=== PATIENT | female | born 1965 | race Caucasian/White ===

== ENCOUNTER 2017-01-20 07:24 | Outpatient (CLI) | payer MEDICAID ==
--- NOTE | ~2017-01-20 | HEMODYNAMI ---
PATIENT:TOY DICKERSON MEDICAL RECORD: [id number] : 69 LOCATION:[facility] ADMISSION DATE: 01/20/17 Generatedon:01/20/20179:44 Patient name: TOY DICKERSON Patient #: [id number] SSN: DO B: 1965 Date of study: 01/20/2017 Page: Of Hemodynamic Procedure Report Patient Data Patient Demographics Procedure consent was obtained First Name: TOY Gender: Female Last Name: JAYLA : 1965 Middle Initial: G Age: 51 year(s) Patient #: [id number] Race: Unknown Additional ID: [id number] Contact details [address]: [address] [place] [address] State: [place] City: [place] Zip code: [address] Past Medical History Allergies Allergen Reaction Date Comments Reported Other allergy 01/20/2017 Morphine, Prednisone Admission Admission Data Admission Date: 01/20/2017 Admission Time: 7:24 Lab Results Lab Result Date: 01/20/2017 Lab Result Time: 0:00 Biochemistry Name Units Result Min Max BUN mg/dl 10 --(-*--)-- 7 18 Creatinine mg/dl 0.7 --(*---)-- 0.6 1.3 CBC Name Units Result Min Max Hemoglobin g/dl 12.7 -*(----)-- 13.5 17.5 Procedure Procedure Types Cath Procedure Diagnostic Procedure [facility] w/Coronaries Miscellaneous Procedures Moderate Sedation up to 15 minutes Procedure Description Procedure Date Procedure Date: 01/20/2017 Procedure Start Time: 9:30 Procedure End Time: 9:42 Procedure Staff Name Function Barak Morejon MD Performing Physician Becky Rayo RN Nurse Aure Jane RT Scrub Denton Elizabeth RT Monitor Procedure Data Cath Procedure Fluoroscopy Diagnostic fluoroscopy Total fluoroscopy Time: 2.7 time: 2.7 min min Diagnostic fluoroscopy Total fluoroscopy dose: 975 dose: 975 mGy mGy Contrast Material Contrast Material Type Amount (ml) Isovue 300 69 Entry Location Entry Primary Successful Side Size Upsize Upsize Entry Closure Jarquin ccessful Closure Location (Fr) 1 (Fr) 2 (Fr) Remarks Device Remarks Radial Right 6 Fr Mechanical artery Short Compression Estimated blood loss: 10 ml Diagnostic catheters Device Type Used For End Catheter Placement Diagnostic Terumo 5Fr Procedure [facility] 110cm catheter Diagnostic Infinity 5Fr Procedure AR 2 MOD catheter Procedure Complications No complications Procedure Medications Medication Administration Route Dosage Oxygen NC 2 l/min Lidocaine 2% added to field 20 Heparin Flush Bag added to field 2 bags (1000units/500ml NS) 0.9% NaCl I.V. 100 ml/hr Versed I.V. 2 mg Fentanyl I.V. 100 mcg Versed I.V. 1 mg Fentanyl I.V. 50 mcg Radial Cocktail I.A. 1 syringe (Verapomil 2mg/Nitro 400mcg/Heparin 1500units) Hemodynamics Rest HGB: 12.7 (g/dl) Heart Rate: 76 (bpm) Snapshots Pre Cath Intra NCS Post Cath Vital Signs Time Heart Resp SPO2 etCO2 NIBP (mmHg) Rhythm Pain Sedation Rate (ipm) (%) (mmHg) Status Level (bpm) 9:12:52 70 27 100 0 131/81(104) NSR 0 (11) 10(A) , No pain 9:17:32 73 24 99 32.6 142/90(113) NSR 0 (11) 10(A) , No pain 9:22:27 75 14 96 31.1 100/66(83) NSR 0 (11) 10(A) , No pain 9:27:16 72 15 96 15.9 103/59(77) NSR 0 (11) 9(A) , No pain 9:32:05 61 15 96 25.1 110/58(93) NSR 0 (11) 9(A) , No pain 9:36:56 86 16 94 24.3 100/63(77) NSR 0 (11) 10(A) , No pain 9:41:42 76 18 96 28.1 119/66(95) NSR 0 (11) 10(A) , No pain Medications Time Medication Route Dose Verified Delivered Reason Notes E ffectiveness by by 9:22:40 Oxygen NC 2 l/min Barak Pena used for Jean-Pierre Rayo is architect 9:22:46 Lidocaine 2% added 20ml Barak Cancino for local to vial Jean-Pierre Morejon MD anesthetic field 9:22:52 Heparin Flush added 2 bags Barak Cancino used for Bag to Jean-Pierre Morejon MD procedure (1000units/500ml field NS) 9:23:01 0.9% NaCl I.V. 100 Barakclinton Palie Per ml/hr Jean-Pierre Rayo RN physician 9:23:08 Versed I.V. 2 mg Braak Palie for sedation Jean-Pierre Rayo RN 9:23:14 Fentanyl I.V. 100 mcg Barak Palie for sedation Jean-Pierre Rayo RN 9:28:15 Versed I.V. 1 mg Barak Palie for sedation Jean-Pierre Rayo RN 9:28:19 Fentanyl I.V. 50 mcg Barak Palie for sedation Jean-Pierre Rayo RN 9:31:32 Radial Cocktail I.A. 1 Barak Cancino for (Verapomil syringe Jean-Pierre Morejon MD vasodilation 2mg/Nitro 400mcg/Heparin 1500units) Procedure Log Time Note 8:45:07 Denton HAWK(R) sent for patient. Start room use. 9:00:11 Time tracking: Regular hours 9:00:15 Plan of Care:Hemodynamics will remain stable., Cardiac rhythm will remain stable., Comfort level will be maintained., Respiratory function will remain adequate., Patient/ family verbilizes understanding of procedure., Procedure tolerated without complication., Recovers from procedure without complications.. 9:05:10 Patient received from Pre/Post Procedure Room to [facility] 1 Alert and oriented. Tansferred to table in Supine position. 9:05:11 Warm blankets applied, and osvaldo hugger turned on for patient comfort. 9:05:12 Correct patient and procedure confirmed by team. 9:05:14 Signed procedure consent form obtained from patient. 9:05:14 ECG and BP/O2 sat monitors applied to patient. 9:05:31 H&P Date Dictated: 12/30/2016 Within 30 days and on chart., H&P Addendum completed by physician on day of procedure. (MUST COMPLETE FOR ALL OUTPATIENTS). 9:05:54 Patient allergic to Other allergyMorphine, Prednisone 9:05:56 Is the patient allergic to Iodine/contrast media? No. 9:06:01 Previous problem with sedation/anesthesia? No ? 9:06:02 Snore? Yes 9:06:03 Sleep apnea? Yes 9:06:04 Deviated septum? No 9:06:05 Opens mouth fully? Yes 9:06:05 Sticks out tongue? Yes 9:06:13 Airway obstruction? No ? 9:06:15 Dentures? No ? 9:06:18 Patient diabetic? No. 9:11:56 Vital chart was started 9:18:22 Baseline sample Acquired. 9:18:27 Rhythm: sinus rhythm 9:18:31 Full Disclosure recording started 9:18:33 Pre-procedure instructions explained to patient. 9:18:38 Pre-op teaching completed and patient verbalized understanding. 9:18:41 Family in waiting room. 9:18:44 Patient NPO since Midnight. 9:19:18 Patient not . Patient has had hysterectomy. 9:19:29 Pre procedure: right dorsailis pedis pulse 1+ Palpable, but thready & weak; easily obliterated 9:19:33 Modified Isaiah's test Ulnar < 7 seconds 9:19:39 Patient pain scale 0/10 ?. 9:19:49 IV patent on arrival in right forearm with 0.9% NaCl at O. 9:20:48 Lab Result : BUN 10 mg/dl 9:20:48 Lab Result : Hemoglobin 12.7 g/dl 9:20:48 Lab Result : Creatinine 0.7 mg/dl 9:20:54 Lab results completed and on chart. 9:20:58 Right Radial & Right Groin area was prepped with chlora-prep and draped in sterile fashion 9:21:00 Alarms reviewed by R. N. 9:21:01 Sharps counted by scrub and verified by R.N. 9:21:08 --------ALL STOP TIME OUT------ 9:21:15 Final Timeout: patient, procedure, and site verified with staff and physician. All members of the team are in agreement. 9:21:17 Right Radial & Right Groin site verified by team. 9:21:20 Physical assessment completed. ASA score P 2 - A patient with mild systemic disease as per Barak Morejon MD. 9:21:23 Sedation plan: IV Moderate Sedation Versed, Fentanyl 9:22:40 Oxygen 2 l/min NC was administered by Buffie Rayo RN; used for procedure; 9:22:46 Lidocaine 2% 20ml vial added to field was administered by Barak Morejon MD; for local anesthetic; 9:22:52 Heparin Flush Bag (1000units/500ml NS) 2 bags added to field was administered by Barak Morejon MD; used for procedure; 9:23:01 0.9% NaCl 100 ml/hr I.V. was administered by Becky Rayo RN; Per physician; 9:23:08 Versed 2 mg I.V. was administered by Becky Rayo RN; for sedation; 9:23:14 Fentanyl 100 mcg I.V. was administered by Becky Rayo RN; for sedation; 9:28:15 Versed 1 mg I.V. was administered by Becky Rayo RN; for sedation; 9:28:19 Fentanyl 50 mcg I.V. was administered by Becky Rayo RN; for sedation; 9:29:38 Use device set Radial Dx 9:29:41 Tegaderm 4 x 4 opened to sterile field. 9:29:51 Acist Syringe opened to sterile field. 9:29:52 Medline Cath Pack opened to sterile field. 9:29:54 Acist Hand Control opened to sterile field. 9:29:55 Acist Manifold opened to sterile field. 9:29:57 Bag Decanter opened to sterile field. 9:29:58 Terumo 6Fr Slender Glidesheath opened to sterile field. 9:29:59 St Mohsen 260cm J .035 wire opened to sterile field. 9:29:59 MBrace Wrist Support opened to sterile field. 9:30:05 Procedure started. 9:30:21 Local anesthetic to right radial artery with Lidocaine 2% by Barak Morejon MD.INITIAL ACCESS ONLY 9:30:40 A 6 Fr Short sheath was inserted into the Right Radial artery 9:31:13 A Diagnostic Terumo 5Fr [facility] 110cm catheter was advanced over the wire and used for Procedure. 9:31:32 Radial Cocktail (Verapomil 2mg/Nitro 400mcg/Heparin 1500units) 1 syringe I.A. was administered by Barak Morejon MD; for vasodilation; 9:32:12 Zero performed for pressure channel P1 9:32:25 LV gram done using ALMEIDA 9:32:34 EF : 60 % 9:33:07 LCA angiography performed. 9:35:23 Catheter removed. 9:35:33 A Diagnostic Infinity 5Fr AR 2 MOD catheter was advanced over the wire and used for Procedure. 9:36:45 RCA angiography performed. 9:36:48 Catheter removed. 9:36:58 Terumo TR Band Standard opened to sterile field. 9:37:11 Sheath removed intact; hemostasis achieved with Mechanical Compression to the Right Radial artery. 9:37:14 Procedure ended.(Physican Out) 9:37:27 Fluoroscopy time 02.70 minutes. 9:37:36 Fluoroscopy dose: 975 mGy 9:37:36 Flurop Dose total: 975 9:38:01 Contrast amount:Isovue 300 69ml. 9:38:03 Sharps counted by scrub and verified by R.N. 9:38:09 TR band inflated with 10cc of air. 9:38:12 Insertion/operative site no bleeding no hematoma. 9:38:41 Post Procedure Pulses reassessed and unchanged 9:38:48 Post-procedure physical assessment completed. ASA score P 2 - A patient with mild systemic disease as per Barak Morejon MD. 9:38:53 Post procedure rhythm: unchanged. 9:38:56 Estimated blood loss: 10 ml 9:39:00 Post procedure instruction explained to patient.Patient verbalizes understanding. 9:39:00 Patient needs reinforcement of post procedure teaching. 9:39:41 Procedure and supply charges have been captured, reviewed, submitted and are correct. 9:39:44 Procedure Complication : No complications 9:42:23 Vital chart was stopped 9:42:29 See physician's report for complete and final results. 9:42:30 Report given to Pre/Post Procedure Room. 9:42:34 Patient transfered to Pre/Post Procedure Room with Stretcher. 9:42:40 Procedure ended. 9:42:40 Full Disclosure recording stopped 9:42:47 End room use (Document Last) Device Usage Item Name Manufacture Quantity Catalog Hospital Part Current Minimal Lot# / Number Charge Number Stock Stock Serial# Code Tegaderm 4 3M 1 [id number] 265259 925230 879420 5 x 4 Acist Acist 1 38641 818764 581215 578968 20 Travolver Inc Medline Cardinal 1 [id number] 812889 78760 604511 5 Cath Pack Design2Launch Acist Hand Acist 1 91915 999091 564940 882825 5 Control Medical Systems Inc Acist Acist 1 02507 403745 800133 988459 5 Manifold Medical Systems Inc Bag Microtek 1 2002S 519173 53459 454038 5 Decanter Medical Inc. Terumo 6Fr Terumo 1 [id number] 971014 776690 388281 [address] St Mohsen 1 258386 118044 883675 207643 30 260cm J .035 wire MBrace Advanced 1 140-0250-00 565801 73435 922882 5 Wrist Vascular Support Dynamics Diagnostic Terumo 1 83-5726 547823 012907 251264 5 Terumo 5Fr [facility] 110cm catheter Diagnostic Cardinal 1 [id number] 541049 998198 650205 20 BusyFlow Health 5Fr AR 2 MOD catheter Terumo TR Terumo 1 [id number] 228416 410410 377915 40 Band Standard Signature Audit [place] Stage Time Signature Unsigned Intra-Procedure 01/20/2017 Aure Jane 9:44:03 AM RT(R) Signatures Monitor : Denton Elizabeth RT Signature : Date : Time : [place] [place] [address]
[2017-01-20] MEDS ORDERED: PLAVIX75 MG PO (07:34)
[2017-01-20] MEDS ORDERED: LISINOPRIL10 MG PO (07:37)
[2017-01-20] MEDS ORDERED: ZANTAC150 MG PO (07:37)
[2017-01-20] MEDS ORDERED: CARDIZEM30 MG PO (07:38)
[2017-01-20] MEDS ORDERED: ESTRACE1 MG PO (07:38)
[2017-01-20] MEDS ORDERED: NEURONTIN 300300 MG PO (07:39)
[2017-01-20] MEDS ORDERED: PLAQUENIL200 MG PO (07:39)
[2017-01-20] MEDS ORDERED: VOLTAREN100 MG PO (07:39)
[2017-01-20] MEDS ORDERED: GLUCOPHAGE500 MG PO (07:39)
[2017-01-20] MEDS ORDERED: REQUIP1 MG PO (07:40)
[2017-01-20] MEDS ORDERED: HYDROCODONE-APA1 TAB PO (07:40)
[2017-01-20] MEDS ORDERED: CELEXA40 MG PO (07:41)
[2017-01-20] MEDS ORDERED: BACLOFEN10 MG PO (07:41)
[2017-01-20] MEDS ORDERED: MOBIC7.5 MG PO (07:41)
[2017-01-20 07:47] VITALS: BP 130/77; BMI 51.6
[2017-01-20 07:57] LABS: BASOPHILS 0.2 % (0-2); EOSINOPHILS 1.4 % (0-7); HEMOGLOBIN 12.7 g/dL (12-16); IMMATURE GRANULOCYTES 0.2 % (0-5); LYMPHOCYTES 42.6 % (15-50); MCH 32.1 pg (26.0-34.0); MCHC 32.6 g/dL (31.0-37.0); MCV 98.5 fL (80.0-100.0); MEAN PLATELET VOLUME 10.4 fL (7.4-10.4); MONOCYTES 12.8 % (2-11); NEUTROPHILS 42.8 % (40-80); PLATELET COUNT 220 10x3/uL (130-400); RBC 3.96 10x6/uL (4.00-5.40); RDW 12.8 % (11.5-14.5); WBC 4.9 10x3/uL (4.8-10.8)
[2017-01-20 08:12] LABS: CALC OSMOLALITY 274 mosm/kg (275-300); CALCIUM 8.7 mg/dL (8.5-10.1); CARBON DIOXIDE 23.9 mmol/L (21.0-32.0); CHLORIDE - SERUM 105 mmol/L (98-107); CREATININE - SERUM 0.7 mg/dL (0.6-1.3); GLUCOSE 104 mg/dL (74-106); POTASSIUM - SERUM 3.8 mmol/L (3.5-5.1); SODIUM 138 mmol/L (136-145); UREA NITROGEN 10 mg/dL (7-18); eGFR NON AFRICAN AMERICAN > 90 mL/min (90-120)
[2017-01-20 08:14] LABS: HCG SERUM NEGATIVE (NEGATIVE)
--- NOTE | 2017-01-20 10:10 | NUR ---
2L NC, NO RESP DISTRESS NOTED. RIGHT WRIST TR BAND CDI, NO BLEEDING OR HEMATOMA NOTED. NO C/O NAUSEA OR PAIN. VSS. FAMILY AT BEDSIDE, CALL LIGHT WITHIN REACH.
--- NOTE | 2017-01-20 10:40 | NUR ---
SANDWICH TRAY AND DRINK GIVEN, NO C/O NAUSEA. RIGHT WRIST TR BAND CDI, NO BLEEDING OR HEMATOMA NOTED. NO C/O PAIN. VSS. WILL CONTINUE TO MONITOR.
--- NOTE | 2017-01-20 11:01 | NUR ---
3CC OF AIR REMOVED FROM TR BAND, NO BLEEDING NOTED. VSS.
--- NOTE | 2017-01-20 11:12 | NUR ---
3CC OF AIR REMOVED FROM TR BAND, NO BLEEDING OR HEMATOMA NOTED. VSS.
--- NOTE | 2017-01-20 11:30 | NUR ---
3CC OF AIR REMOVED FROM TR BAND, NO BLEEDING NOTED.
--- NOTE | 2017-01-20 11:45 | NUR ---
LEFT HAND PIV D/C'D WITH CATHETER INTACT, BAND AID TO SITE. UP TO BEDSIDE TO GET DRESSED.
--- NOTE | 2017-01-20 11:52 | NUR ---
UP TO RESTROOM TO VOID.
--- NOTE | 2017-01-20 11:57 | NUR ---
DISCHARGE INSTRUCTIONS GIVEN, VERBALIZED UNDERSTANDING. REMAINING AIR REMOVED FROM TR BAND AND DRESSING PLACED TO SITE.
--- NOTE | 2017-01-20 12:05 | NUR ---
TAKEN OUT VIA WHEELCHAIR BY CATH EASTER BUNNY. LEFT FACILITY WITH FAMILY MEMBER AND ALL PERSONAL BELONGINGS.
--- NOTE | 2017-01-31 16:56 | OP ---
PATIENT NAME: TOY DICKERSON MEDICAL RECORD: [id number] :69 LOCATION:D[facility]CAT ADMISSION DATE: SURGEON: MARIELA GUTIERREZ MD DATE OF OPERATION: 01/20/2017 PROCEDURES: 1. Left heart catheterization. 2. Selective coronary angiography. 3. Left ventriculogram. INDICATION: Chest pain compatible with angina. PROCEDURE IN DETAIL: After informed consent was obtained and after detailed explanation of risks, benefits as well as alternative therapies, the patient elected to proceed with angiogram and heart catheterization. The right radial area was prepped and draped in normal sterile fashion. The right radial artery was cannulated via modified Seldinger technique with placement of 6-Malaysian sheath. All catheters exchanged through this sheath. FINDINGS: Left ventriculogram performed in standard 30-degree ALMEIDA view, reveals good cardiac wall motion throughout all segments. Overall ejection fraction estimated at 60%. SELECTIVE CORONARY ANGIOGRAPHY: Left main, left anterior descending, left circumflex, and right coronary artery are all smooth-walled vessels with no angiographic evidence of coronary artery disease. OVERALL IMPRESSION: 1. No angiographic evidence of coronary artery disease. 2. Normal left heart pressures. 3. Normal left ventricular systolic function. Chest pain is noncardiac in etiology. No further cardiac workup needs to be ascertained. TRANSINT:[id number] Voice Confirmation ID: [id number] DOCUMENT ID: [id number] MARIELA GUTIERREZ MD at 1656 CC: [id number] DICTATION DATE: 01/20/17 0939 DIRECTOR OF EVENT MANAGEMENT: 01/20/17 1135 [facility] CLI 01/20/[address] [address]
== END 2017-01-20 12:05 | disposition home or self-care (01) ==
LOC: D.CATH 07:24
PROVIDERS: Internal Medicine Interventional Cardiology
DX: I20.9 Angina pectoris, unspecified (principal); R07.9 Chest pain, unspecified; I10 Essential (primary) hypertension; Z01.812 Encounter for preprocedural laboratory examination

== ENCOUNTER → 2017-04-29 09:29 | Outpatient (CLI) | payer MEDICAID ==
[~2017-04-29 09:29] MED LIST: BACLOFEN10 MG PO; CARDIZEM30 MG PO; CELEXA40 MG PO; ESTRACE1 MG PO; GLUCOPHAGE500 MG PO; HYDROCODONE-APA1 TAB PO; LISINOPRIL10 MG PO; MOBIC7.5 MG PO; NEURONTIN 300300 MG PO; PLAQUENIL200 MG PO; PLAVIX75 MG PO; REQUIP1 MG PO; VOLTAREN100 MG PO; ZANTAC150 MG PO
== END | disposition home or self-care (01) ==
LOC: D.RAD 09:29
DX: R05 Cough (principal)

== ENCOUNTER 2018-01-18 10:17 | Emergency (ER) | payer MEDICARE ==
[2018-01-18 10:21] VITALS: Ht 165.1 cm
[2018-01-18] MEDS ORDERED: NORCO 7.5/325 T1 TA1 PO (11:10)
[2018-01-18 11:42] VITALS: BP 138/79
== END 2018-01-18 11:44 | disposition home or self-care (01) ==
LOC: D.ER 10:17
DX: S89.92XA Unspecified injury of left lower leg, initial encounter (principal); W18.30XA Fall on same level, unspecified, initial encounter; Y93.89 Activity, other specified; Y92.018 Other place in single-family (private) house as the place of occurrence of the external cause; I10 Essential (primary) hypertension

== ENCOUNTER → 2018-01-23 13:10 | Outpatient (CLI) | payer MEDICARE ==
[2018-01-18 10:21] VITALS: BMI 51.6
[~2018-01-23 13:10] MED LIST changes: +NORCO 7.5/325 T1 TA1 PO
== END | disposition home or self-care (01) ==
LOC: D.MRI 13:10
DX: M25.562 Pain in left knee (principal)

== ENCOUNTER → 2018-06-12 10:19 | Outpatient (CLI) | payer OTHER ==
[2018-01-18 10:21] VITALS: BMI 51.6
== END | disposition home or self-care (01) ==
LOC: D.RAD 10:19
PROVIDERS: ATTEND Family Medicine
DX: M25.552 Pain in left hip (principal)

== ENCOUNTER 2018-07-22 07:01 | Day surgery (SDC) | payer OTHER ==
[2018-07-20 10:19] LABS: BASOPHILS 0.2 % (0-2); HEMATOCRIT 39.1 % (36.0-48.0); HEMOGLOBIN 12.9 g/dL (12-16); IMMATURE GRANULOCYTES 0.2 % (0-5); LYMPHOCYTES 49.5 % (15-50); MCH 30.6 pg (26.0-34.0); MCV 92.9 fL (80.0-100.0); MEAN PLATELET VOLUME 9.7 fL (7.4-10.4); NEUTROPHILS 39.1 % (40-80); PLATELET COUNT 226 10x3/uL (130-400); RBC 4.21 10x6/uL (4.00-5.40); RDW 14.2 % (11.5-14.5)
[2018-07-20 10:37] LABS: ANION GAP 10.1 mmol/L (8-16); CALCIUM 9.3 mg/dL (8.5-10.1); CARBON DIOXIDE 31.1 mmol/L (21.0-32.0); POTASSIUM - SERUM 4.2 mmol/L (3.5-5.1)
[~2018-07-22] VITALS: Ht 165.1 cm; Wt 149.2 kg
[~2018-07-22 07:01] MED LIST changes: +KLONOPIN1 MG PO; +LISINOPRIL-HCT1 EAC8 PO; +ZANAFLEX4 MG PO
[2018-07-22 08:46] VITALS: BP 101/57; Ht 165.1 cm; Wt 149.2 kg
--- NOTE | 2018-07-22 13:49 | NUR ---
1300 PT VOIDED LARGE AMT URINE. IV REMOVED LEFT AC DRESSING APPLIED
== END 2018-07-22 14:00 | disposition home or self-care (01) ==
LOC: D.OPS 07:01 → D.PAN 08:00 → D.OPS 09:00
PROVIDERS: ATTEND Orthopaedic Surgery
DX: S83.281A Other tear of lateral meniscus, current injury, right knee, initial encounter (principal); M94.261 Chondromalacia, right knee; M65.861 Other synovitis and tenosynovitis, right lower leg; Z01.812 Encounter for preprocedural laboratory examination

== ENCOUNTER → 2018-09-25 10:29 | Outpatient (CLI) | payer OTHER ==
[2018-07-22 08:46] VITALS: BMI 54.8
== END | disposition home or self-care (01) ==
LOC: D.MRI 09-23 11:00
PROVIDERS: ATTEND Clinical Nurse Specialist Family Health
DX: M25.511 Pain in right shoulder (principal)

== ENCOUNTER → 2018-10-07 08:26 | Outpatient (CLI) | payer OTHER ==
[~2018-10-07] VITALS: Ht 165.1 cm; Wt 145.1 kg
[2018-10-07 09:50] VITALS: Ht 165.1 cm; Wt 145.1 kg
== END | disposition home or self-care (01) ==
LOC: D.FANS 09-29 13:00
PROVIDERS: ATTEND Surgery
DX: E66.01 Morbid (severe) obesity due to excess calories (principal)

== ENCOUNTER → 2018-10-14 14:28 | Outpatient (CLI) | payer OTHER ==
[2018-10-07 09:50] VITALS: BMI 53.2
== END | disposition home or self-care (01) ==
LOC: D.RT 14:28
PROVIDERS: ATTEND Internal Medicine Pulmonary Disease
DX: R06.00 Dyspnea, unspecified (principal)

== ENCOUNTER 2018-11-23 07:20 | Day surgery (SDC) | payer OTHER ==
[~2018-11-23] VITALS: Ht 165.1 cm; Wt 149.5 kg
[2018-11-23 07:57] LABS: CALC OSMOLALITY 283 mosm/kg (275-300); CALCIUM 9.3 mg/dL (8.5-10.1); CARBON DIOXIDE 27.9 mmol/L (21.0-32.0); CHLORIDE - SERUM 105 mmol/L (98-107); CREATININE - SERUM 0.8 mg/dL (0.6-1.3); GLUCOSE 105 mg/dL (74-106); POTASSIUM - SERUM 3.7 mmol/L (3.5-5.1); SODIUM 143 mmol/L (136-145); UREA NITROGEN 9 mg/dL (7-18); eGFR NON AFRICAN AMERICAN 80 mL/min (90-120)
[2018-11-23 08:05] LABS: BASOPHILS 0.4 % (0-2); EOSINOPHILS 1.6 % (0-7); HEMATOCRIT 38.6 % (36.0-48.0); HEMOGLOBIN 12.7 g/dL (12-16); IMMATURE GRANULOCYTES 0.2 % (0-5); LYMPHOCYTES 47.7 % (15-50); MCHC 32.9 g/dL (31.0-37.0); MCV 94.1 fL (80.0-100.0); MEAN PLATELET VOLUME 10.6 fL (7.4-10.4); MONOCYTES 12.5 % (2-11); NEUTROPHILS 37.6 % (40-80); PLATELET COUNT 244 10x3/uL (130-400); RDW 13.3 % (11.5-14.5); WBC 5.1 10x3/uL (4.8-10.8)
[2018-11-23] MEDS ORDERED: TERBINAFINE (09:16)
[2018-11-23] MEDS ORDERED: TOPAMAX50 MG (09:17)
[2018-11-23] MEDS ORDERED: TUMERIC CURCUMIN PO (09:18)
[2018-11-23] MEDS ORDERED: AMBEREN (09:19)
[2018-11-23] MEDS ORDERED: VITAMIN D5000 UNIT (09:20)
[2018-11-23 09:30] VITALS: BP 108/65; Ht 165.1 cm; Wt 149.5 kg
--- NOTE | 2018-11-23 13:02 | NUR ---
DC INSTRUCTIONS GIVEN TO PT/FAMILY. STATE UNDERSTANDING. DC'D IV CATH FULLY INTACT. PT LEFT UNIT VIA WC AT 1230
== END 2018-11-23 12:30 | disposition home or self-care (01) ==
LOC: D.OPS 07:20
PROVIDERS: ATTEND Surgery
DX: E66.01 Morbid (severe) obesity due to excess calories (principal); Z68.43 Body mass index [BMI] 50.0-59.9, adult; K21.9 Gastro-esophageal reflux disease without esophagitis

== ENCOUNTER → 2018-11-26 08:30 | Outpatient (CLI) | payer OTHER ==
[2018-11-23 09:30] VITALS: BMI 54.8
[~2018-11-26 08:30] MED LIST changes: +AMBEREN; +HYDROCODON-ACE1 EAC7 PO; +PROTONIX40 MG PO; +TERBINAFINE; +TOPAMAX50 MG; +TUMERIC CURCUMIN PO; +VITAMIN D5000 UNIT; +ZOFRAN ODT4 MG/UDTAB PO
== END | disposition home or self-care (01) ==
LOC: D.OPS 08:30 → D.RAD 10:30
PROVIDERS: ATTEND Surgery
DX: E66.01 Morbid (severe) obesity due to excess calories (principal)

== ENCOUNTER 2019-01-01 10:32 | Inpatient (IN) | payer OTHER ==
[~2019-01-01] VITALS: Ht 165.1 cm; Wt 140.9 kg
[~2019-01-01 10:32] MED LIST changes: -HYDROCODON-ACE1 EAC7 PO; -PROTONIX40 MG PO; -ZOFRAN ODT4 MG/UDTAB PO
[2019-01-01 12:50] LABS: HEMATOCRIT 41.8 % (36.0-48.0); HEMOGLOBIN 13.9 g/dL (12-16); MCH 31.2 pg (26.0-34.0); MCHC 33.3 g/dL (31.0-37.0); MCV 93.9 fL (80.0-100.0); MEAN PLATELET VOLUME 10.3 fL (7.4-10.4); RBC 4.45 10x6/uL (4.00-5.40); WBC 5.4 10x3/uL (4.8-10.8)
[2019-01-01 12:59] LABS: CALC OSMOLALITY 276 mosm/kg (275-300); CALCIUM 9.6 mg/dL (8.5-10.1); CARBON DIOXIDE 29.4 mmol/L (21.0-32.0); CHLORIDE - SERUM 100 mmol/L (98-107); CREATININE - SERUM 0.8 mg/dL (0.6-1.3); GLUCOSE 87 mg/dL (74-106); POTASSIUM - SERUM 3.6 mmol/L (3.5-5.1); SODIUM 140 mmol/L (136-145); UREA NITROGEN 9 mg/dL (7-18); eGFR NON AFRICAN AMERICAN 80 mL/min (90-120)
[2019-01-04] VITALS (17 sets, daily range): BP systolic 127–181; BP diastolic 67–103; Ht 165.1 cm; Wt 140.9 kg
[2019-01-04] MEDS ORDERED: PROTONIX40 MG PO (07:33)
--- NOTE | 2019-01-04 09:18 | NUR ---
PT STATED SHE HAD A FALL THIS AM AND WAS CONCERNED THAT SHE MAY HAVE BROKE TOES ON LEFT FOOT PT STATED SHE WAS UNABLE TO REMOVE RING ON LEFT RING FINGER AND HAD MADE EVERY ATTEMPT TO DO SO. PT MADE AWARE OF RISK DUE TO USE OF ELECTRIC CAUTERY. TAPE PLACE AROUND PT RING ON LEFT RING FINGER. ABDOMEN THOROUGHLY PREPPED WITH CHLORAPREP X3.
--- NOTE | 2019-01-04 15:56 | NUR ---
PT HOUSE WIRER LIGHT. PATIENT HAS HIVES AND REDNESS. SAID SHE BELIEVED SHE HAD DILAUDED BEFORE. DR WILKINS CALLED. SAID IF THEY WANTED A COLD ROLLING SUPERVISOR THE ONLY OPTIONS ARE DILAUDED AND MORPHINE. PT STATES ALLERGY TO MORPHINE. DR WILKINS GAVE MEDICATION OPTIONS. TM
--- NOTE | 2019-01-04 19:30 | NUR ---
PT IS RESTING IN BED WITH EYES CLOSED. OPENS EYES EASILY TO VERBAL STIMULI. ALERT AND ORIENTED X3. SHE IS VERY DROWSY. DENIES ANY NEEDS AT THIS TIME. O2 IS @ 4LPM PER NC. SAT IS 96%. VSS. PULSE IS 117. 6 LAP SITES TO ABD ARE CDI. SCANT AMOUNT OF OLD DRAINAGE NOTED TO 2 SITES ON RIGHT UPPER ABDOMEN. AND 2 SISTERS ARE VISITING AT BEDSIDE. SR'S ARE UP X 3 IN BED. CALL LIGHT AND BEDSIDE TABLE ARE WITHIN EASY REACH.
[2019-01-04 20:11] LABS: CKMB 1.6 U/L (0.0-3.6); CREATINE KINASE 203 UL (21-215)
[2019-01-04 20:12] LABS: TROPONIN-I < 0.017 ng/mL (0.000-0.060)
--- NOTE | 2019-01-04 22:00 | NUR ---
PT RESTING IN BED WITH EYES OPEN. SHE IS MUCH MORE AWAKE AT THIS TIME. DENIES NEEDS. STATED HE HAD JUST HELPED HER WALK TO THE BATHROOM WITHOUT DIFFICULTY. O2 @ 98%. LOWERED TO 3LPM AT THIS TIME.
--- NOTE | 2019-01-04 23:43 | NUR ---
RESTING IN BED WITH EYES CLOSED. NO DISTRESS NOTED. CPAP ON. SPOUSE RESTING IN RECLINER IN ROOM.
[2019-01-05 01:37] LABS: CKMB 1.3 U/L (0.0-3.6); CREATINE KINASE 222 UL (21-215); TROPONIN-I < 0.017 ng/mL (0.000-0.060)
--- NOTE | 2019-01-05 02:23 | NUR ---
PT IS RESTING QUIETLY IN BED WITH EYES CLOSED. RESPS ARE 19, EVEN AND UNLABORED. NO ACUTE DISTRESS NOTED.
--- NOTE | 2019-01-05 02:25 | NUR ---
I have reviewed this patient and I concur with the Shift Assessment completed by the Licensed Practical Nurse today this shift.
[2019-01-05 04:00] VITALS: BP 169/77
--- NOTE | 2019-01-05 06:15 | NUR ---
PT UP TO BATHROOM WITH ASSIST FROM . PT STATES SHE IS A LITTLE SORE THIS MORNING, BUT IS FEELING GREAT. O2 SAT IS 98 PERCENT ON ROOM AIR. NO NEEDS VOICED.
[2019-01-05 06:50] LABS: BASOPHILS 0.1 % (0-2); EOSINOPHILS 0.1 % (0-7); HEMATOCRIT 39.6 % (36.0-48.0); HEMOGLOBIN 12.6 g/dL (12-16); IMMATURE GRANULOCYTES 0.1 % (0-5); LYMPHOCYTES 22.7 % (15-50); MCHC 31.8 g/dL (31.0-37.0); MEAN PLATELET VOLUME 10.8 fL (7.4-10.4); MONOCYTES 15.3 % (2-11); NEUTROPHILS 61.7 % (40-80); PLATELET COUNT 227 10x3/uL (130-400); RBC 4.06 10x6/uL (4.00-5.40); RDW 13.9 % (11.5-14.5); WBC 8.5 10x3/uL (4.8-10.8)
[2019-01-05 06:53] LABS: MCV 97.5 fL (80.0-100.0)
[2019-01-05 07:14] LABS: ALBUMIN 3.4 g/dL (3.4-5.0); ALKALINE PHOSPHATASE 60 U/L (46-116); ALT (SGPT) 33 U/L (10-68); BILIRUBIN - TOTAL 0.59 mg/dL (0.2-1.3); CHLORIDE - SERUM 101 mmol/L (98-107); CREATINE KINASE 225 UL (21-215); GLUCOSE 110 mg/dL (74-106); PROTEIN - SERUM 6.7 g/dL (6.4-8.2); SODIUM 140 mmol/L (136-145); TROPONIN-I < 0.017 ng/mL (0.000-0.060); eGFR NON AFRICAN AMERICAN 70 mL/min (90-120)
[2019-01-05 07:15] LABS: CALC OSMOLALITY 276 mosm/kg (275-300); CREATININE - SERUM 0.9 mg/dL (0.6-1.3); UREA NITROGEN 5 mg/dL (7-18)
--- NOTE | 2019-01-05 07:15 | NUR ---
REC'D IN BED AWAKE AND ALERT. RESP EVEN AND UNLABORED WITH NO DISTRESS NOTED. CAN EXPRESS NEEDS ANDS AND WANTS. NO C/O NOTED OR VOICED. ASSESSMENT COMPLETED. NO C/O VOICED. C/L IN REACH AT BEDSIDE.
[2019-01-05 08:15] VITALS: BP 178/85
[2019-01-05] MEDS ORDERED: HYDROCODON-ACE1 EAC7 PO (09:53)
[2019-01-05] MEDS ORDERED: ZOFRAN ODT4 MG/UDTAB PO (09:53)
--- NOTE | 2019-01-05 10:31 | NUR ---
MEDICATED WITH TORDAL AT THIS TIME FOR C/O ABD PAIN. C/L IN REACH AT BEDSIDE.
--- NOTE | 2019-01-05 12:30 | NUR ---
DC HOME AT THIS TIME. VOICE UNDERSTANDING OF DC ORDERS. IV DC WITH TIP INTACT. STABLE CONDITION UPON DEPARTURE.
[2019-01-05 12:39] VITALS: BP 182/77
== END 2019-01-05 12:40 | disposition home or self-care (01) | DRG 621 ==
LOC: D.MS 01-04 07:05 → D.SDCHOLD 01-04 08:00 → D.MS 01-05 12:40
PROVIDERS: Anesthesiology; ADMIT Surgery; ATTEND Surgery
PROC: 0DB64Z3 Excision of Stomach, Percutaneous Endoscopic Approach, Vertical (ICD-10-PCS; principal; 2019-01-04 08:00)
DX: E66.01 Morbid (severe) obesity due to excess calories (principal); Z68.43 Body mass index [BMI] 50.0-59.9, adult; I10 Essential (primary) hypertension; G47.33 Obstructive sleep apnea (adult) (pediatric); M81.0 Age-related osteoporosis without current pathological fracture; K21.0 Gastro-esophageal reflux disease with esophagitis; M15.3 Secondary multiple arthritis

== ENCOUNTER 2019-01-04 05:48 | Emergency (ER) | payer OTHER ==
[~2019-01-04] VITALS: Ht 165.1 cm; Wt 142.3 kg
[2019-01-04 05:51] VITALS: Ht 165.1 cm; Wt 142.3 kg
[2019-01-04 06:36] LABS: BASOPHILS 0.1 % (0-2); EOSINOPHILS 0.4 % (0-7); HEMATOCRIT 40.8 % (36.0-48.0); HEMOGLOBIN 13.4 g/dL (12-16); IMMATURE GRANULOCYTES 0.1 % (0-5); LYMPHOCYTES 15.8 % (15-50); MCH 31.2 pg (26.0-34.0); MCHC 32.8 g/dL (31.0-37.0); MCV 95.1 fL (80.0-100.0); MEAN PLATELET VOLUME 10.8 fL (7.4-10.4); MONOCYTES 11.7 % (2-11); NEUTROPHILS 71.9 % (40-80); PLATELET COUNT 231 10x3/uL (130-400); RBC 4.29 10x6/uL (4.00-5.40); RDW 13.3 % (11.5-14.5); WBC 8.1 10x3/uL (4.8-10.8)
[2019-01-04 06:47] LABS: ALKALINE PHOSPHATASE 68 U/L (46-116); ALT (SGPT) 43 U/L (10-68); BILIRUBIN - TOTAL 0.57 mg/dL (0.2-1.3); CALC OSMOLALITY 285 mosm/kg (275-300); CALCIUM 9.3 mg/dL (8.5-10.1); CARBON DIOXIDE 31.5 mmol/L (21.0-32.0); CHLORIDE - SERUM 104 mmol/L (98-107); CREATININE - SERUM 1.5 mg/dL (0.6-1.3); GLUCOSE 104 mg/dL (74-106); POTASSIUM - SERUM 3.8 mmol/L (3.5-5.1); PROTEIN - SERUM 6.8 g/dL (6.4-8.2); SODIUM 144 mmol/L (136-145); UREA NITROGEN 9 mg/dL (7-18); eGFR NON AFRICAN AMERICAN 39 mL/min (90-120)
[2019-01-04 06:51] LABS: CREATINE KINASE 188 UL (21-215)
[2019-01-04 06:54] LABS: TROPONIN-I < 0.017 ng/mL (0.000-0.060)
[2019-01-04 06:57] VITALS: BP 96/50
[2019-01-04] MEDS ORDERED: PROTONIX40 MG PO (07:33)
[2019-01-05] MEDS ORDERED: HYDROCODON-ACE1 EAC7 PO (09:53)
[2019-01-05] MEDS ORDERED: ZOFRAN ODT4 MG/UDTAB PO (09:53)
== END 2019-01-04 06:58 | disposition home or self-care (01) ==
LOC: D.ER 05:48
PROVIDERS: Family Medicine
DX: R55 Syncope and collapse (principal); I10 Essential (primary) hypertension

== ENCOUNTER 2019-04-04 04:26 | Inpatient (IN) | payer OTHER ==
[2019-04-04] VITALS (51 sets, daily range): BP systolic 70–172; BP diastolic 29–89; Ht 165.1 cm; Wt 133.3 kg
[~2019-04-04] VITALS: Ht 165.1 cm; Wt 133.3 kg
--- NOTE | ~2019-04-04 | EC ---
PATIENT:TOY DICKERSON DATE OF SERVICE: 04/04/19 SEX: F MEDICAL RECORD: [id number] DATE OF : 69 LOCATION:[place] [address] AGE OF PATIENT: 53 ADMISSION DATE: 04/04/19 REFERRING PHYSICIAN: INTERPRETING PHYSICIAN: MARIELA MOREJON MD ECHOCARDIOGRAM REPORT ECHO CHARGES 4 ECHO COMPLETE Date: 04/04/19 CLINICAL DIAGNOSIS: SYNCOPE HX HTN ECHOCARDIOGRAPHIC MEASUREMENTS (adult normal given) AC root (d.<3.7cm) 3.3 cm LV Septum d (<1.2 cm> 1.6 cm Valve Excursion 1.5 cm LV Septum (systole) 1.9 cm Left Atria (s.<4.0cm> 3.6 cm LVPW d(<1.2cm) 1.6 cm RV (d.<2.3cm) 3.4 cm LVPW (sytole) 1.8 cm LV diastole(<5.6CM) 4.0 cm MV E-F(>70mm/sec) cm LV systole 2.7 cm LVOT Diameter 2.1 cm MV exc.(>10mm) 1.8 cm Est.ejection fraction (50-75%) % DOPPLER: LVIT cm/sec A 88.0 cm/sec E 72.0 cm/sec LA cm/sec RVSP 23 mmHg LVOT 137 cm/sec AOP1/2T m/s Asc. Ao 196 cm/sec RVOT 119 cm/sec RA cm/sec PA 194 cm/sec AV Gradient Peak 15.32mmHg AV Mean 7.65 mmHg AV Area 3.1 cm MV Gradient Peak 16.90mmHg MV Mean 2.42 mmHg MV Area cm COMMENTS: Spiral Gear Generator: Fariba HERNANDEZ Blanket Washer: 1 Dr. Morejon TAPE# PACS Pericardial Effusion N DATE OF SERVICE: 04/05/2019 FINDINGS: 1. Left ventricular chamber size is within normal limits. Left ventricular systolic function is normal. Overall ejection fraction estimated at 60%. 2. Left atrium, right atrium, right ventricle chamber size is within normal limits. 3. Valvular structures have normal structure and motion. 4. Doppler interrogation reveals no significant valvular insufficiency or stenosis and pulmonary systolic pressure is normal estimated at 23 mmHg. ECHOCARDIOGRAM REPORT [id number] TOY DICKERSON 5. No evidence of pericardial effusion or left ventricular thrombus. TRANSINT:[id number] Voice Confirmation ID: [id number] DOCUMENT ID: [id number] MARIELA MOREJON MD CC: [id number] DICTATION DATE: 04/05/19925 PSYCHIATRY PHYSICIAN: 04/05/19 1152 ADM IN [facility] [address] [place] [address]
--- NOTE | ~2019-04-04 | CN ---
PATIENT NAME:TOY WHITE MEDICAL RECORD: [id number] : 69 LOCATION:[facility] ADMIT DATE: 04/04/19 ACCOUNT: [id number] CONSULTING PHYSICIAN: MARIELA GUTIERREZ MD REFERRING PHYSICIAN: DAMON TALBOT MD DATE OF CONSULTATION: 04/04/2019 CARDIOLOGY CONSULTATION DIAGNOSES: 1. Syncope. 2. Hypotension. 3. History of hypertension. 4. Gastric sleeve surgery. HISTORY OF PRESENT ILLNESS: Mrs. White today became very dizzy and had an episode of syncope. When she presented to the Emergency Room, her systolic blood pressure was in the 70s. She has a history of hypertension for which she is on Cardizem and lisinopril. She has had a gastric sleeve surgery 12/24, has had a 50 pound weight loss since and has had a significant decrease in her intake. PHYSICAL EXAMINATION: CONSTITUTIONAL/GENERAL APPEARANCE: Well nourished, well developed, appears stated age. EYES: Lids and conjunctivae noninjected. No discharge. No pallor. ENT: Lips within normal limit. No cyanosis. No pallor. NECK: Carotid arteries, bilateral normal upstroke. No bruits. No thrills. No jugular venous pressure or distention. CERVICAL LYMPH NODES: Nontender. Nonenlarged. THYROID: Not enlarged. No nodules. CARDIOVASCULAR: Precordial exam, nondisplaced. No heaves or pericardial thrills. Rate and rhythm, regular. Heart sounds, normal S1, normal S2. No S3, no gallop, no rub. Systolic murmur, not heard. Diastolic murmur, not heard. RESPIRATORY: Respiratory effort, unlabored. Normal curvature. No thoracic deformity. No chest wall tenderness. Percussion, resonant. Auscultation, clear. No wheezes, no rales, no rhonchi. ABDOMEN: Soft, nondistended, nontender. No abdominal pain, no vomiting and normal appetite. MUSCULOSKELETAL: No joint tenderness, normal gait, normal tone. SKIN: Warm and dry. OVERALL IMPRESSION: Syncope related to hypotension from blood pressure medications. With her weight loss and her decreased intake, she will need less blood pressure medications. Most likely this is the etiology of syncope. We will get an echocardiogram to rule out any structural cardiac abnormalities. If the echo is normal, no other cardiac workup or treatment is necessary. Only decrease in her blood pressure medications. TRANSINT:[id number] Voice Confirmation ID: [id number] DOCUMENT ID: [id number] CONSULT REPORT [id number] TOY WHITE JEFFREY MD CC: [id number] DICTATION DATE: 04/04/19 1247 AIR COMPRESSOR OPERATOR: 04/04/19 1336 ADM IN [place] [id number] [place] [address]
[~2019-04-04 04:26] MED LIST changes: +HYDROCODON-ACE1 EAC7 PO; +PROTONIX40 MG PO; +ZOFRAN ODT4 MG/UDTAB PO
[2019-04-04] MEDS ORDERED: MELOXICAM PO (04:51)
[2019-04-04] MEDS ORDERED: LISINOPRIL-HCT1 EAC8 PO (04:53)
[2019-04-04 05:05] LABS: BASOPHILS 0.2 % (0-2); EOSINOPHILS 0.5 % (0-7); HEMATOCRIT 40.3 % (36.0-48.0); HEMOGLOBIN 12.8 g/dL (12-16); IMMATURE GRANULOCYTES 0.2 % (0-5); LYMPHOCYTES 21.5 % (15-50); MCH 30.5 pg (26.0-34.0); MCHC 31.8 g/dL (31.0-37.0); MCV 96.2 fL (80.0-100.0); MEAN PLATELET VOLUME 10.6 fL (7.4-10.4); NEUTROPHILS 63.6 % (40-80); PLATELET COUNT 205 10x3/uL (130-400); RBC 4.19 10x6/uL (4.00-5.40); RDW 13.9 % (11.5-14.5); WBC 6.3 10x3/uL (4.8-10.8)
--- NOTE | 2019-04-04 05:07 | NUR ---
PT BEGAN ON LEVOPHED- 5MCG/MIN.
[2019-04-04 05:21] LABS: CALC OSMOLALITY 284 mosm/kg (275-300); CARBON DIOXIDE 32.7 mmol/L (21.0-32.0); CHLORIDE - SERUM 104 mmol/L (98-107); CREATININE - SERUM 1.6 mg/dL (0.6-1.3); GLUCOSE 73 mg/dL (74-106); POTASSIUM - SERUM 3.6 mmol/L (3.5-5.1); SODIUM 143 mmol/L (136-145); UREA NITROGEN 15 mg/dL (7-18); eGFR NON AFRICAN AMERICAN 36 mL/min (90-120)
[2019-04-04 05:30] LABS: APPEARANCE CLEAR (CLEAR); BILIRUBIN NEGATIVE (NEGATIVE); COLOR YELLOW (YELLOW); GLUCOSE NEGATIVE (NEGATIVE); KETONE NEGATIVE (NEGATIVE); NITRITE NEGATIVE (NEGATIVE); PROTEIN NEGATIVE (NEGATIVE); UROBILINOGEN NORMAL (NORMAL)
[2019-04-04 05:31] LABS: ALBUMIN 3.5 g/dL (3.4-5.0); ALKALINE PHOSPHATASE 58 U/L (46-116); ALT (SGPT) 38 U/L (10-68); BILIRUBIN - TOTAL 0.28 mg/dL (0.2-1.3); CREATINE KINASE 103 UL (21-215); LIPASE 179 U/L (73-393); MAGNESIUM - SERUM 1.8 mg/dL (1.8-2.4); PRO BNP 90 pg/mL (0-125); PROTEIN - SERUM 6.6 g/dL (6.4-8.2); THYROID STIMULATING HORMONE 1.19 uIU/mL (0.36-3.74)
[2019-04-04 05:33] LABS: TROPONIN-I < 0.017 ng/mL (0.000-0.060)
--- NOTE | 2019-04-04 06:41 | NUR ---
PT'S ROOM CHANGED TO CV3- FAMILY TAKEN TO CV WAITING ROOM. TAKEN UPSTAIRS ON PORTABLE MONITOR WITH IV NS INFUSING AT 150, AND LEVOPHED INFUSING AT 5MCG/MIN.
--- NOTE | 2019-04-04 07:00 | NUR ---
ADMITTED TO CV 03. TRANSFERRED TO ICU BED BY TOTAL LIFT. CONNECTED TO MONITOR AND VS OBTAINED. O2 VIA NC AT 2 LPM. IV R AC NS AT 150CC/HR AND LEVOPHED AT 5 MCG/MIN. SEE ADM FOR COMPLETE ASSESSMENT. NO ACUTE DISTRESS NOTED.
--- NOTE | 2019-04-04 13:36 | NUR ---
PT AWAKE AND ALERT-WATCHING TELEVISION
--- NOTE | 2019-04-04 14:43 | NUR ---
LYING NIBP 156/76 (94) SITTING-NIBP 140/78 (98) STANDING NIBP 123/88 (98)
--- NOTE | 2019-04-04 17:29 | NUR ---
1600-ECHO DONE-PT REMAINS SUPINE HOB ELEVATED 30*-HOME CPAP BROUGHT BY FAMILY
[2019-04-05] VITALS (26 sets, daily range): BP systolic 101–188; BP diastolic 49–92
[2019-04-05 04:33] LABS: HEMATOCRIT 38.1 % (36.0-48.0); MCH 30.5 pg (26.0-34.0); MCHC 31.5 g/dL (31.0-37.0); MCV 96.9 fL (80.0-100.0); MEAN PLATELET VOLUME 10.7 fL (7.4-10.4); PLATELET COUNT 194 10x3/uL (130-400); RBC 3.93 10x6/uL (4.00-5.40); RDW 13.7 % (11.5-14.5)
[2019-04-05 04:40] LABS: ANION GAP 9.6 mmol/L (8-16); CALCIUM 8.5 mg/dL (8.5-10.1); CARBON DIOXIDE 32.1 mmol/L (21.0-32.0); POTASSIUM - SERUM 3.7 mmol/L (3.5-5.1)
[2019-04-05 04:44] LABS: CREATININE - SERUM 0.9 mg/dL (0.6-1.3)
[2019-04-05 04:46] LABS: WBC 4.5 10x3/uL (4.8-10.8)
--- NOTE | 2019-04-05 07:00 | NUR ---
RECEIVED BEDSIDE REPORT ON PATIENT AND ASSUMED CARE. PATEINT RESTING QUIETLY, VSS. EASILY AROUSED BY VOICE, SPO2 94% ON RA, BBS - CLEAR AND EQUAL. CM - SR RATE OF 84 WITH NO ECTOPY NOTED. LINDSEY CATH IN PLACE WITH YELLOW UOP NOTED. IV RIGHT FA 20 GA WITH NS INFUSING AT 150 ML/HR. HEAD TO TOE ASSESSMENT COMPLETED. NO NEEDS AT THIS TIME.
--- NOTE | 2019-04-05 07:42 | NUR ---
PATIENT GIVEN BREAKFAST TRAY AND FRESH ICE WATER. VSS.
--- NOTE | 2019-04-05 08:07 | NUR ---
PATIENT ATE 100% OF BREAKFAST. NO NEEDS AT THIS TIME.
[2019-04-05 08:24] LABS: ANISOCYTOSIS OCC; LYMPHOCYTES 54 % (15-50); MONOCYTES 6 % (2-11); NEUTROPHILS 40 % (40-80); PLATELET ESTIMATE NORMAL; ROULEAUX OCC
--- NOTE | 2019-04-05 08:52 | NUR ---
MESSAGE LEFT WITH DR. TALBOT REFERENCE PATIENTS BP SYSTOLIC >160 AND NS AT 150 CC/HR, WITH PATIENT EATING FULL BREAKFAST. PATIENT GIVEN MORNING MEDS PER JUN.
--- NOTE | 2019-04-05 10:21 | NUR ---
SPOKE TO DR. BURGER, HOSPITALIST ON TODAY, UPDATED ON PATIENTS BP, ADVISED WILL REVIEW WHEN SHE ROUNDS. OKAY TO DC NS GTT AT THIS TIME.
--- NOTE | 2019-04-05 10:57 | NUR ---
REASSESSMENT COMPLETE. PATIENT RESTING QUIETLY WITH SNORING RESPIRATIONS, EASILY AROUSED BY VOICE. VSS.
--- NOTE | 2019-04-05 11:30 | NUR ---
PT AT ROOM TO EVALUATE PATIENT. PATIENT TOLERATES WELL VSS. PATIENT INDEPENDENT, UP AD RYAN.
--- NOTE | 2019-04-05 11:33 | NUR ---
PATIENT UP TO BEDSIDE CHAIR FOR LUNCH
--- NOTE | 2019-04-05 12:04 | NUR ---
DR. BURGER AT ROOM UPATED AND EXAMINES PATIENT. PATIENT TO BE DISCHARGED HOME THIS AFTERNOON. PATIENT ATE APPROXIMATELY 50% OF LUNCH.
[2019-04-05] MEDS ORDERED: LISINOPRIL10 MG PO (12:55)
--- NOTE | 2019-04-05 13:53 | NUR ---
PATIENT GIVEN DISCHARGE INSTRUCTIONS AND QUESTIONS ANSWERED. DISCHARGED TO HOME WITH FAMILY MEMBER. VSS.
== END 2019-04-05 14:11 | disposition home or self-care (01) | DRG 314 ==
LOC: D.ER 04:26 → D.M2 05:21 → OBSVTIME 05:21 → D.M2 05:21 → D.CVICU 05:43 → D.ICU 05:43 → D.CVICU 07:03
PROVIDERS: Family Medicine; ADMIT Internal Medicine Nephrology; ATTEND Internal Medicine Nephrology
DX: I95.9 Hypotension, unspecified (principal); J96.01 Acute respiratory failure with hypoxia; J96.02 Acute respiratory failure with hypercapnia; N17.9 Acute kidney failure, unspecified; R55 Syncope and collapse; R00.1 Bradycardia, unspecified; I10 Essential (primary) hypertension; E66.01 Morbid (severe) obesity due to excess calories; Z98.84 Bariatric surgery status

== ENCOUNTER 2019-04-16 01:10 | Inpatient (IN) | payer MEDICARE ==
[2019-04-16] VITALS (33 sets, daily range): BP systolic 89–177; BP diastolic 36–94; Ht 165.1 cm; Wt 126.7 kg
[~2019-04-16] VITALS: Ht 165.1 cm; Wt 126.7 kg
[~2019-04-16 01:10] MED LIST changes: +MELOXICAM PO
[2019-04-16 01:59] LABS: BASOPHILS 0.1 % (0-2); EOSINOPHILS 0.9 % (0-7); HEMATOCRIT 36.3 % (36.0-48.0); HEMOGLOBIN 11.7 g/dL (12-16); IMMATURE GRANULOCYTES 0.1 % (0-5); LYMPHOCYTES 34.9 % (15-50); MCH 30.8 pg (26.0-34.0); MCHC 32.2 g/dL (31.0-37.0); MCV 95.5 fL (80.0-100.0); MEAN PLATELET VOLUME 11.2 fL (7.4-10.4); MONOCYTES 8.3 % (2-11); NEUTROPHILS 55.7 % (40-80); PLATELET COUNT 200 10x3/uL (130-400); RDW 14.2 % (11.5-14.5); WBC 8.7 10x3/uL (4.8-10.8)
[2019-04-16 02:08] LABS: CALC OSMOLALITY 284 mosm/kg (275-300); CALCIUM 8.2 mg/dL (8.5-10.1); CARBON DIOXIDE 27.1 mmol/L (21.0-32.0); CHLORIDE - SERUM 106 mmol/L (98-107); POTASSIUM - SERUM 3.5 mmol/L (3.5-5.1); SODIUM 142 mmol/L (136-145); UREA NITROGEN 13 mg/dL (7-18); eGFR NON AFRICAN AMERICAN 62 mL/min (90-120)
[2019-04-16 02:10] LABS: GLUCOSE 139 mg/dL (74-106)
--- NOTE | 2019-04-16 02:20 | NUR ---
PT LEFT FLOOR FOR ORDERED CTA AT THIS TIME VIA STRETCHER. MONITOR ATTACHED. IV INFUSING NOREPINEPHRINE 10MCG/KG. PT TRANSPORTED FROM CTA TO ICU. PT STABLE AT TIME OF TRANSFER. BP 144/68, TITRATED NOREPINEPHRINE TO 7MCG/KG AT THIS TIME. ICU NURSE INFORMED UPON ARRIVAL TO ROOM.
[2019-04-16 02:22] LABS: ALBUMIN 2.8 g/dL (3.4-5.0); ALKALINE PHOSPHATASE 53 U/L (46-116); ALT (SGPT) 24 U/L (10-68); BILIRUBIN - TOTAL 0.29 mg/dL (0.2-1.3); LIPASE 103 U/L (73-393); MAGNESIUM - SERUM 1.8 mg/dL (1.8-2.4); PRO BNP 31 pg/mL (0-125); THYROID STIMULATING HORMONE 2.17 uIU/mL (0.36-3.74); TROPONIN-I < 0.017 ng/mL (0.000-0.060)
[2019-04-16 02:28] LABS: UDS - AMPHET NEGATIVE QUAL (NEGATIVE); UDS - BARB NEGATIVE QUAL (NEGATIVE); UDS - BENZO NEGATIVE QUAL (NEGATIVE); UDS - COCAINE NEGATIVE QUAL (NEGATIVE); UDS - OPIATE POSITIVE QUAL (NEGATIVE); UDS - PCP NEGATIVE QUAL (NEGATIVE); UDS - THC NEGATIVE QUAL (NEGATIVE)
[2019-04-16 02:36] LABS: APPEARANCE CLEAR (CLEAR); BILIRUBIN NEGATIVE (NEGATIVE); COLOR YELLOW (YELLOW); GLUCOSE NEGATIVE (NEGATIVE); KETONE NEGATIVE (NEGATIVE); NITRITE NEGATIVE (NEGATIVE); PROTEIN TRACE mg/dL (NEGATIVE); SPECIFIC GRAVITY 1.015 (1.005-1.020)
[2019-04-16 02:38] LABS: BACTERIA FEW /hpf (NEGATIVE); EPITHELIAL CELLS 0-5 /hpf (0-5); MUCUS <1+ /lpf (NONE SEEN); RED CELLS - URINE 0-5 /hpf (0-5)
--- NOTE | 2019-04-16 03:00 | NUR ---
PT ARRIVED TO ICU ACCOMPANIED BY ER STAFF. REPORT RECEIVED, PT AAOX4 ON ROOM AIR. RT FOREARM PIV INFUSING, SEE IV FLOWSHEET. ASSESSMENT COMPLETED, SEE FLOWSHEET. NO ACUTE DISTRESS NOTED, WILL CONTINUE TO MONITOR.
--- NOTE | 2019-04-16 05:00 | NUR ---
PT RESTING IN BED, NO ACUTE DISTRESS NOTED. PT STATES SHE "WEARS CPAP AT HOME, BUT WAS UNABLE TO GRAB IT BEFORE [SHE] CAME TO THE HOSPITAL." WILL CONTINUE TO MONITOR.
--- NOTE | 2019-04-16 07:00 | NUR ---
PT REPORT RECEIVED FROM GAMBLING COUNSELLOR NURSE. NO VISIBLE SIGNS OF DISTRESS NOTED. PT DENIES ANY PAIN. LEVOPHED RUNNING AT 2MCG/KG/MIN. SHIFT ASSESSMENT COMPLETED AT THIS TIME. WILL CONTINUE TO MONITOR
--- NOTE | 2019-04-16 09:00 | NUR ---
LEVOPHED STOPPED AT THIS TIME. PT TOLERATING WELL. BLOOD PRESSURE CURRENTLY WNL. WILL CONTINUE TO MONITOR
--- NOTE | 2019-04-16 11:00 | NUR ---
PT RESTING IN BED COMFORTABLY. UP TO BEDSIDE WITH ASSISTANCE. TOLERATED WELL. WILL CONTINUE TO MONITOR
--- NOTE | 2019-04-16 13:00 | NUR ---
PT RESTING IN BED COMFORTABLY. FAMILY AT BEDSIDE. NO ACUTE SIGNS OF DISTRESS NOTED. WILL CONTINUE TO MONITOR
--- NOTE | 2019-04-16 15:00 | NUR ---
PT RESTING IN BED COMFORTABLY. NO ACUTE SIGNS OF DISTRESS NOTED. WILL CONTINUE TO MONITOR
--- NOTE | 2019-04-16 17:13 | NUR ---
PT RESTING IN BED COMFORTABLY. FAMILY IN ROOM. NO ACUTE SIGNS OF DISTRESS NOTED. WILL CONTINUE TO MONITOR
--- NOTE | 2019-04-16 19:00 | NUR ---
recieved shift report at bedside at this time. pt is sitting up in bed on her cell phone talking. when asked if she is in any pain she vocalized "no". when asked if she needs anything at the moment she voiced "no". she is a&ox4. bed is low, bed locked, siderailsx2, call light within reach. will conitnue to monitor
--- NOTE | 2019-04-16 22:09 | NUR ---
PT IS RESTING IN BED WATCHING TV. VOICES"I AM DOING FINE". BED IS LOW, SIDE RAILSX2, CALL LIGHT WITHIN REACH. WILL CONINTUE TO MIKE
--- NOTE | 2019-04-17 01:08 | NUR ---
PT IS RESTING IN BED WITH EYES CLOSED WITH CPAP ON. VITAL SIGNS ARE STABLE, WATCHING BP DUE TO SOME HIGH SYSTOLIC NUMBER BEING IN THE 170S. I CALLED AT 0033 TO NOTIFY ABOUT PT BP. THE PT IS NOT SYMPTOMATIC. BP IS 135/109 AT THIS TIME. WILL CONTINUE TO MONITOR. CONTINUING PLAN OF CARE. BED IS LOW.SIDE RAILSX2, CALL LIGHT WITHIN REACH.
--- NOTE | 2019-04-17 01:56 | NUR ---
PT BP IS 153/70. PT IS RESTING WITH EYES CLOSED, CPAP ON. VITAL SIGNS ARE STABLE. BED IS LOW, SIDE RAILSX2, CALL LIGHT WITHIN REACH. WILL CONTINUE TO MONTIOR
[2019-04-17 02:54] VITALS: BP 121/76
--- NOTE | 2019-04-17 03:16 | NUR ---
PT IS RESTING IN BED WITH EYES CLOSED. VITAL SIGNS ARE STABLE. BED IS LOW, SIDE RAILSX2, CALL LIGHT IS WITHIN REACH. WILL CONTINUE TO MONITOR
--- NOTE | 2019-04-17 03:57 | NUR ---
PT PUSHED CALL LIGHT. WHEN ENTERED ROOM SHE VOCALIZED HER IV HURTS. WHEN VISUALIZED I ASSESSED THAT THE PT IV WAS INFILTRATED. STOP IV FLUIDS IMMEDIATED AND DC. HELD COMPRESSION AND THERE WAS MINIMAL BLEEDING. OBTAINED NEW IV 22G IN LEFT FORARM ON SECOND ATEMPT. PT TOLERATED WELL. I PROVIDED PT WITH A WARM COMPRESS TO PUT ON INFILTRATED AREA. AFTER THIS PT VOICED "I AM STARTING TO ACH, I USUALLY TAKE A NORCO AT NIGHT, CAN I HAVE ONE?" I VOCALIZED THAT SHE DID NOT HAVE THIS ORDERED AT THIS TIME, HOWEVER I WOULD NOTIFY THE DOCTOR TO SEE IF HE WOULD ORDER IT FOR HER. SHE VOCALIZED "OK, THANK YOU". BED IS IN LOW POSTION, SIDERAILSX2, CALL LIGHT WITHIN REACH. VITAL SIGNS STABLE. WILL CONTINUE TO MONTIOR
--- NOTE | 2019-04-17 05:55 | NUR ---
PT IS RESTING IN BED WITH EYES CLOSED AND CPAP ON. VITAL SIGNS ARE STABLE. BED IS LOW,SIDE RAILSX2, CALL LIGHT WIHTIN REACH. WILL CONTINUE TO MONITOR
[2019-04-17 06:45] VITALS: BP 142/67
--- NOTE | 2019-04-17 06:52 | NUR ---
PT IS RESTING IN BED WITH EYES CLOSED. VITAL SIGNS ARE STABLE. HANDING OVER CARE TO KIM GRIMALDO. BED IS LOW, SIDE RAILSX2, CALL LIGHT IS WITHIN REACH.
--- NOTE | 2019-04-17 07:00 | NUR ---
PT REPORT RECEIVED FROM WOOD PRESERVING PLANT LABORER NURSE. NO ACUTE SIGNS OF DISTRESS NOTED. PT ON HOME CPAP. WILL CONTINUE TO MONITOR
--- NOTE | 2019-04-17 09:00 | NUR ---
PT RESTING IN BED COMFORTABLY. FAMILY AT BEDSIDE. NO NEEDS NOTED AT THIS TIME. WILL CONTINUE TO MONITOR
--- NOTE | 2019-04-17 11:30 | NUR ---
VERBAL DISCHARGE ORDER RECEIVED FROM DR TOMPKINS.
--- NOTE | 2019-04-17 13:15 | NUR ---
DISCHARGE PAPERWORK SIGNED BY PATIENT AND NURSE. CALLED [facility] TO CALL IN PRESCRIPTION. PREPARING TO DISCHARGE PT.
--- NOTE | 2019-04-17 13:40 | NUR ---
PT TAKEN BY WHEELCHAIR TO CAR DRIVEN BY HER DAUGHTER. TOLERATED WELL.
--- NOTE | 2019-04-18 15:18 | MORECARE ---
CASE MANAGEMENT DISCHARGE SUMMARY PATIENT: TOY DICKERSON UNIT: [id number] ADM DATE: 04/16/19 AGE: 53 : 69 SEX: F ROOM/BED: D.2313 AUTHOR: SIVA,DOC PHYSICIAN: REFERRING PHYSICIAN: BRII DEMPSEY MD DATE OF SERVICE: 04/18/19 Discharge Plan Patient Name: TOY DICKERSON Facility: [facility]:[place] : 1965 Planned Disposition: Anticipated Discharge Date: Discharge Date: 04/17/2019 Expected LOS: Initial Reviewer: [email or web address] Initial Review Date: 04/16/2019 Generated: 04/18/19 4:17 pm Comments DCP- Discharge Planning Updated by [email or web address]: Ebony Carver on 04/18/19 2:[address] LATE ENTRY 04/16/2019 Patient Name: TOY DICKERSON Admission Status: ER Accout number: [id number] Admission Date: 04-16-2019 : 1965 Admission Diagnosis: Attending: OBINNA Current LOS: 1 Anticipated DC Date: Planned Disposition: Primary Insurance: [facility] [employer] Discharge Planning Comments: CM met with patient to complete initial dc planning assessment. CM educated patient on the CM role and verbal consent given by patient to complete assessment. Patient lives at home with her where she is independent with her care. At discharge patient plans to return home and feels this is a safe discharge. CM discussed availability of home health, rehab services, and medical equipment. She will have her family drive her home upon discharge. Patient has a CPAP and a walker. Patient denied known discharge needs at this time. CM will continue to follow and will assist as needed with dc plans/needs. Software Product Specialist: Ebony Carver DCPIA - Discharge Planning Initial Assessment Updated by [email or web address]: Ebony Carver on 04/18/19 3:14 pm * Is the patient Alert and Oriented? Yes * How many steps to enter\exit or inside your home? * PCP DUGLAS * Pharmacy [facility] * Preadmission Environment Home with Family * ADLs Independent * Equipment CPAP * Other Equipment WALKER * List name and contact numbers for known caregivers / representatives who currently or will assist patient after discharge: AVIS DICKERSON - SPOUSE - [phone] * Verbal permission to speak to the caregivers and representatives has been obtained from the patient. Yes * Community resources currently utilized None * Additional services required to return to the preadmission environment? No * Can the patient safely return to the preadmission environment? Yes * Has this patient been hospitalized within the prior 30 days at any hospital? Yes Patient Name: TOY DICKERSON Page [phone] at 1518 All edits/amendments must be made on the electronic document DICTATION DATE: 04/18/191516 [address] ATTENDANT: NAILA 04/18/191516 RPT#: [id number] DC DATE:04/17/19 STATUS: DIS IN [facility] [address] [place] [address] END OF REPORT
== END 2019-04-17 13:40 | disposition home or self-care (01) | DRG 315 ==
LOC: D.ER 01:10 → D.ICU 02:06
PROVIDERS: Family Medicine; ADMIT Family Medicine; ATTEND Family Medicine
DX: I95.9 Hypotension, unspecified (principal); Z68.42 Body mass index [BMI] 45.0-49.9, adult; M19.90 Unspecified osteoarthritis, unspecified site; F41.9 Anxiety disorder, unspecified; E66.01 Morbid (severe) obesity due to excess calories; I10 Essential (primary) hypertension; G25.81 Restless legs syndrome; G89.29 Other chronic pain; Z98.84 Bariatric surgery status

== ENCOUNTER → 2019-06-03 15:04 | Outpatient (CLI) | payer MEDICARE ==
[2019-04-16 03:24] VITALS: BMI 46.4
== END | disposition home or self-care (01) ==
LOC: D.LABREF 15:04
PROVIDERS: ATTEND Orthopaedic Surgery
DX: M17.11 Unilateral primary osteoarthritis, right knee (principal)

== ENCOUNTER 2019-07-12 13:32 | Inpatient (IN) | payer MEDICARE ==
[~2019-07-12] VITALS: Ht 165.1 cm; Wt 109.5 kg
[~2019-07-12 13:32] MED LIST changes: +HYDROXYCHLOROQ200 MG PO; -PLAQUENIL200 MG PO
[2019-08-25] MEDS ORDERED: CHOLECALCIFEROL PO (11:14)
[2019-08-25] MEDS ORDERED: ATARAX 25 MG TA25 MG PO (11:15)
[2019-08-25 12:22] LABS: CALC OSMOLALITY 283 mosm/kg (275-300); CALCIUM 9.5 mg/dL (8.5-10.1); CARBON DIOXIDE 32.3 mmol/L (21.0-32.0); CHLORIDE - SERUM 104 mmol/L (98-107); CREATININE - SERUM 0.7 mg/dL (0.6-1.3); GLUCOSE 98 mg/dL (74-106); POTASSIUM - SERUM 3.9 mmol/L (3.5-5.1); SODIUM 143 mmol/L (136-145); UREA NITROGEN 11 mg/dL (7-18); eGFR NON AFRICAN AMERICAN > 90 mL/min (90-120)
[2019-08-25 12:24] LABS: APTT 33.9 SECONDS (22.8-39.4); INR 0.96 (0.85-1.17); PROTIME 12.8 SECONDS (11.6-15.0)
[2019-08-25 13:21] LABS: BACTERIA FEW /hpf (NEGATIVE); BILIRUBIN NEGATIVE (NEGATIVE); EPITHELIAL CELLS 0-5 /hpf (0-5); GLUCOSE NEGATIVE (NEGATIVE); KETONE NEGATIVE (NEGATIVE); NITRITE NEGATIVE (NEGATIVE); RED CELLS - URINE NONE SEEN /hpf (0-5); SPECIFIC GRAVITY 1.015 (1.005-1.020); UROBILINOGEN 4 mg/dL (NORMAL); WHITE CELLS - URINE OCC /hpf (NEGATIVE)
[2019-08-25 13:25] LABS: HEMATOCRIT 44.1 % (36.0-48.0); MCH 30.6 pg (26.0-34.0); MCHC 31.7 g/dL (31.0-37.0); MCV 96.3 fL (80.0-100.0); MEAN PLATELET VOLUME 10.5 fL (7.4-10.4); PLATELET COUNT 254 10x3/uL (130-400); RBC 4.58 10x6/uL (4.00-5.40); RDW 12.8 % (11.5-14.5); WBC 4.3 10x3/uL (4.8-10.8)
[2019-08-25 14:14] LABS: LYMPHOCYTES 47 % (15-50); MONOCYTES 6 % (2-11); NEUTROPHILS 46 % (40-80); PLATELET ESTIMATE NORMAL
[2019-08-31] VITALS (12 sets, daily range): BP systolic 95–131; BP diastolic 51–73; Ht 165.1 cm; Wt 109.5 kg
[2019-08-31] MEDS ORDERED: HYDROCODON-ACE1 EA10 PO (06:09)
[2019-08-31] MEDS ORDERED: VITAMIN D5000 UNI1 PO (06:12)
[2019-08-31] MEDS ORDERED: BACTRIM 400-801 TAB PO (06:13)
--- NOTE | 2019-08-31 06:16 | NUR ---
PATIENT STATES OVERNIGHT STAY IN 12 MONTHS @ [facility] WAS FOR GASTRIC SLEEVE SURGERY AND FOR EPISODES OF HYPOTENSION-NO IDENTIFIED INFECTIOUS DISEASE PROCESS IDENTIFIED.
--- NOTE | 2019-08-31 09:43 | NUR ---
XRAY COMPLETED. ICE APPLIED ORDERED. JORGE HOSE IN PLACE BILATERALLY. WILL CPOC.
--- NOTE | 2019-08-31 11:02 | OP ---
PATIENT NAME: TOY WHITE MEDICAL RECORD: [id number] :69 LOCATION:D. D.1208 ADMISSION DATE:08/31/19 SURGEON: RAMÍREZ CARABALLO, DATE OF OPERATION: 08/31/2019 PROCEDURE PERFORMED: Right total knee arthroplasty. PREOPERATIVE DIAGNOSIS: Right knee osteoarthritis. POSTOPERATIVE DIAGNOSIS: Right knee osteoarthritis. INDICATIONS: Ms. White is a 53-year-old female who has undergone every conservative management possible including injections, physical therapy, medications to no avail and she is tired of dealing with the pain and limiting her activities of daily living and wants something done surgically. She was aware of the risks including infection, bleeding, damage to nerves and vessels, need for further surgery, continued pain, blood clots, and even and she signed the consent. DESCRIPTION OF PROCEDURE: The patient was taken to the operative suite, laid in the supine position, given general anesthetic and LMA was placed. She was given 80 mg of gentamicin, 2 gram of Ancef and a gram of TXA. The right lower extremity was then prepped and draped in sterile fashion. A time-out was performed. Everyone was in agreeance with the correct site, side, patient and procedure. I then marked out an incision over the anterior knee and covered in Ioban. I then used 10-blade scalpel to go down through the skin to the capsule and with a fresh 10-blade made medial parapatellar approach to the capsule. I then everted the patella and milled it down. She had severe wear on the lateral side, so I just moved down to the medial side, as if I did to even it out it would be too thin and be a risk for fracture. I then exposed the femur and removed the ACL and went to the femoral canal with a drill and then put in the distal femoral cutting guide with 5 degrees valgus and 10 resection and cut the distal femur and then the proximal tibia was exposed and measured off the lateral side. Then, at the lateral side 2 mm, the proximal tibial guide was set and then cut, the proximal tibia bone was removed. I then removed the menisci, bringing the knee into an extension, removed the menisci and 10 extension block fit well. We did do some lateral releasing in order to balance the knee. Once the 10 extension block fit, the knee was flexed up and the femur was measured to be 57.5. I then put a 4-in-1 cutting block on and cut the femur. We then put the trial on, put in a poly and tibial tray and marked the rotation. We then drilled the holes for the patella and lug holes on the femur. I then exposed the tibia and sized to be 67, 67 was drilled and punched and then extra holes were put in the tibia for the cement. Cement was mixed. Once the cement was mixed, the tibia was irrigated out. Cement was put on the tibial tray and into the tibia and then impacted in place. Excess cement was removed and the femur was then impacted on, lay down nicely on the femur. Then, a 10 poly was put in between. The knee was brought to extension and the patellar holes were cleaned out of irrigation and a curette and then cement was put on the patella and the holes and on the implant, squeezing into place. Excess cement was removed from that. I then put 10% povidone iodine with 500 mL normal saline in the knee and was set for 3 minutes. This was then irrigated out with more than a liter of normal saline. I then sized this more lateral releasing and a 16 poly fit well and had good medial and lateral stability in flexion and extension. I then put a 16 poly in and the cement had dried, anterior stabilized and then locked out into place. We then put in Jamie and vancomycin and tobramycin powder. The OPERATIVE REPORT [id number] JAYLATOY Martin patient was given another gram of TXA. The capsule was then closed in [id number] fashion with #1 Vicryl pop-offs and they were tied by Erwin Ruff certified surgical nurse first aid and then he closed the skin with 2-0 Vicryl in inverted interrupted fashion, ZipLine placed on the knee. Adaptic, 4 x 4s, ABD, Webril, Julian wrap, JORGE hose stocking was then placed on the knee. She was then awakened and taken to recovery in stable condition. Blood loss was approximately 200 mL. COMPLICATIONS: None. TRANSINT:[id number] Voice Confirmation ID: [id number] DOCUMENT ID: [id number] RAMÍREZ CARABALLO DO at 1102 CC: [id number] DICTATION DATE: 08/31/19919 DIGITAL PROJECT COORDINATOR: 08/31/[address] [facility] [address] [id number]
[2019-08-31 12:54] LABS: BASOPHILS 0.1 % (0-2); EOSINOPHILS 0.1 % (0-7); HEMATOCRIT 38.5 % (36.0-48.0); HEMOGLOBIN 12.4 g/dL (12-16); IMMATURE GRANULOCYTES 0.2 % (0-5); LYMPHOCYTES 9.4 % (15-50); MCH 30.8 pg (26.0-34.0); MCHC 32.2 g/dL (31.0-37.0); MCV 95.8 fL (80.0-100.0); MEAN PLATELET VOLUME 10.2 fL (7.4-10.4); MONOCYTES 7.3 % (2-11); NEUTROPHILS 82.9 % (40-80); RBC 4.02 10x6/uL (4.00-5.40); RDW 12.9 % (11.5-14.5); WBC 9.5 10x3/uL (4.8-10.8)
[2019-08-31 13:00] LABS: PLATELET COUNT 195 10x3/uL (130-400)
[2019-08-31 13:21] LABS: ALBUMIN 3.4 g/dL (3.4-5.0); ALKALINE PHOSPHATASE 53 U/L (30-120); ALT (SGPT) 25 U/L (10-68); BILIRUBIN - TOTAL 0.39 mg/dL (0.2-1.3); CALC OSMOLALITY 280 mosm/kg (275-300); CALCIUM 8.3 mg/dL (8.5-10.1); CARBON DIOXIDE 30.7 mmol/L (21.0-32.0); CHLORIDE - SERUM 104 mmol/L (98-107); CREATININE - SERUM 0.8 mg/dL (0.6-1.3); GLUCOSE 109 mg/dL (74-106); POTASSIUM - SERUM 4.5 mmol/L (3.5-5.1); PROTEIN - SERUM 5.9 g/dL (6.4-8.2); SODIUM 140 mmol/L (136-145); UREA NITROGEN 14 mg/dL (7-18); eGFR NON AFRICAN AMERICAN 80 mL/min (90-120)
--- NOTE | 2019-08-31 14:00 | NUR ---
PT UP TO BSC TO URINATE PT UNABLE TO URINATE USING BED ROBLES. PT URINATED ABOUT 100ML. WILL CONTINUE TO MONITOR.
--- NOTE | 2019-08-31 15:24 | NUR ---
PT UP WITH P.T. AND WALKED 30FT WITH WALKER.
--- NOTE | 2019-08-31 15:25 | NUR ---
P.T STATES WE(NURSING STAFF) CAN GET PT UP TO THE BATHROOM. I VERBALZIED UNDERSTANDING.
--- NOTE | 2019-08-31 16:59 | NUR ---
PT UNABLE TO COMPLETE BLADDER EMPTYING. BLADDER SCAN SHOWED 662ML. IN AND OUT CATH DONE PER DR. REYES ORDERS. 725ML RETURNED. WILL CONTINUE TO MONITOR.
--- NOTE | 2019-08-31 18:05 | NUR ---
CPM MACHINE PLACED ON PT.
--- NOTE | 2019-08-31 20:00 | NUR ---
ALERT RESTING IN BED, CPM IN USE, SEE SHIFT ASSESSMENT, CALL LIGHT IN REACH
[2019-09-01] VITALS: BP 102/43
[2019-09-01 03:26] LABS: BILIRUBIN NEGATIVE (NEGATIVE); GLUCOSE 50 mg/dL (NEGATIVE); KETONE NEGATIVE (NEGATIVE); NITRITE NEGATIVE (NEGATIVE); SPECIFIC GRAVITY 1.015 (1.005-1.020); UROBILINOGEN NORMAL (NORMAL)
[2019-09-01 03:27] LABS: BACTERIA FEW /hpf (NEGATIVE); EPITHELIAL CELLS 0-5 /hpf (0-5); RED CELLS - URINE 0-5 /hpf (0-5)
[2019-09-01 04:00] VITALS: BP 141/66
--- NOTE | 2019-09-01 07:30 | NUR ---
PATIENT AWAKE AND ALERT IN BED WATCHING TV, DENIES ANY NEEDS AT THIS TIME, C/L AND FLUIDS IN REACH.
[2019-09-01 07:39] LABS: BASOPHILS 0 % (0-2); EOSINOPHILS 0.6 % (0-7); HEMATOCRIT 34.6 % (36.0-48.0); HEMOGLOBIN 11.1 g/dL (12-16); LYMPHOCYTES 24.1 % (15-50); MCH 30.7 pg (26.0-34.0); MCHC 32.1 g/dL (31.0-37.0); MCV 95.6 fL (80.0-100.0); MEAN PLATELET VOLUME 10.6 fL (7.4-10.4); MONOCYTES 14.7 % (2-11); NEUTROPHILS 60.6 % (40-80); PLATELET COUNT 180 10x3/uL (130-400); RBC 3.62 10x6/uL (4.00-5.40)
[2019-09-01 07:40] LABS: WBC 5.3 10x3/uL (4.8-10.8)
[2019-09-01 07:48] VITALS: BP 131/59
[2019-09-01 08:05] LABS: ALBUMIN 2.6 g/dL (3.4-5.0); ALKALINE PHOSPHATASE 39 U/L (30-120); ALT (SGPT) 20 U/L (10-68); BILIRUBIN - TOTAL 0.45 mg/dL (0.2-1.3); CARBON DIOXIDE 28.9 mmol/L (21.0-32.0); CHLORIDE - SERUM 99 mmol/L (98-107); CREATININE - SERUM 0.8 mg/dL (0.6-1.3); GLUCOSE 93 mg/dL (74-106); PROTEIN - SERUM 5.1 g/dL (6.4-8.2); SODIUM 133 mmol/L (136-145); eGFR NON AFRICAN AMERICAN 80 mL/min (90-120)
[2019-09-01 08:14] LABS: CALC OSMOLALITY 263 mosm/kg (275-300); POTASSIUM - SERUM 3.3 mmol/L (3.5-5.1); UREA NITROGEN 8 mg/dL (7-18)
--- NOTE | 2019-09-01 08:37 | NUR ---
PT RESTING QUIETLY IN BED WATCHING TV. RESP EVEN AND UNLABORED. PT REPORTS PAIN 8/10 AT THIS TIME. DISCUSSED NEXT TIME PAIN MED CAN BE ADMINISTERED. PT VOICES UNDERSTANDING. IV TO LEFT FOREARM WITH 1/2 NS @ 50ML/HR INFUSING VIA PUMP. SITE WITHOUT REDNESS OR EDEMA. DRESSING C/D/I TO RIGHT KNEE. DENIES FURTHER NEEDS AT THSI TIME. CL WITHIN REACH. ENCOURAGED TO CALL WITH NEEDS. CONTINUE POC
--- NOTE | 2019-09-01 11:15 | NUR ---
ASSIST PT TO BR WITH WALKER. PT ANNITA WELL
--- NOTE | 2019-09-01 11:49 | NUR ---
PATIENT AWAKE AND ALERT VISITING WITH , DENIES ANY NEEDS AT THIS TIME, C/L AND FLUIDS IN REACH.
[2019-09-01 13:07] VITALS: BP 172/72
[2019-09-01] MEDS ORDERED: ELIQUIS2.5 MG PO (15:37)
[2019-09-01] MEDS ORDERED: VISTARIL50 MG PO (15:38)
[2019-09-01] MEDS ORDERED: OXYCODONE HCL5 M1 PO (15:38)
--- NOTE | 2019-09-01 16:00 | NUR ---
RESTING IN BED WATCHING TV, DENIES ANY NEEDS AT THIS TIME, C/L AND FLUIDS IN REACH.
--- NOTE | 2019-09-01 16:45 | NUR ---
IV DISCONTINUED FROM LEFT FOREARM, CATH INTACT. DISCUSSED DISCHARGE PAPER WORK, MONITORING FOR S/S OF INFECTION, PRESCRIPTIONS. CHANGED DRESSING TO RIGHT KNEE AND WRAPPED WITH MELE WRAP. PT TAKEN OUT VIA W/C TO PRIVATE VEHICLE WITH PERSONAL BELONGINGS.
--- NOTE | 2019-09-01 17:19 | MORECARE ---
CASE MANAGEMENT DISCHARGE SUMMARY PATIENT: TOY WHITE UNIT: [id number] ADM DATE: 08/31/19 AGE: 53 : 69 SEX: F ROOM/BED: D.1208 AUTHOR: SIVA,DOC PHYSICIAN: REFERRING PHYSICIAN: RAMÍREZ CARABALLO DO DATE OF SERVICE: 09/01/19 Discharge Plan Patient Name: TOY WHITE Facility: [facility]:[place] : 1965 Planned Disposition: Home Health Service Anticipated Discharge Date: 09/01/19 Discharge Date: 09/01/2019 Expected LOS: 1 Initial Reviewer: [email or web address] Initial Review Date: 08/31/2019 Generated: 09/01/19 6:18 pm Comments DCP- Discharge Planning Updated by [email or web address]: Alivia Gillette on 09/01/19 3:[address] DC Plan: [facility], spouse to drive patient home. CM met with patient to discuss initial discharge planning, with present. Patient is in agreement to proceed with the assessment. Patient reports that she lives at home independently with her . Patient is alert/oriented. Stairs/steps: 1. PCP: Dr. Francis Garza. Pharmacy: [facility] Patient states she has been able to obtain all of her prescribed medications. HHS: No. DME: Walker, CPM, Compression service, Polar Ice Pack, BSC/Shower chair. Emergency contact: Raghav White [phone]. Patient is Independent with all ADL's, medication management FINANCE ADMINISTRATOR. CM discussed the availability of HH, Rehab, SNF, OP Therapy, DME services. Patient request [facility], with Mj Aviles for PT. Patient denies hospitalization within the past 30 days. Patient denies the use of community resources FINANCE ADMINISTRATOR. Transportation at time of discharge: Raghav. CM contacted Arely, with [facility], left a VM for Yudy Waterman @[phone], with referral. Provided required information to . DCPIA - Discharge Planning Initial Assessment Updated by [id number]: Alivia Gillette on 09/01/19 5:11 pm * Is the patient Alert and Oriented? Yes * How many steps to enter\exit or inside your home? * PCP Francis Carrera * Pharmacy [facility] * Preadmission Environment Home with Family * ADLs Independent * Equipment Bedside Commode Walker * Other Equipment Compression device CPM Polar Ice Pack * List name and contact numbers for known caregivers / representatives who currently or will assist patient after discharge: Raghav White () [phone] * Verbal permission to speak to the caregivers and representatives has been obtained from the patient. Yes * Community resources currently utilized Home Health * Please name any agencies selected above. [facility] Mj Aviles (PT) * Additional services required to return to the preadmission environment? Yes * Can the patient safely return to the preadmission environment? Yes * Has this patient been hospitalized within the prior 30 days at any hospital? No Patient Name: TOY WHITE Page [phone] at 1719 All edits/amendments must be made on the electronic document DICTATION DATE: 09/01/191717 COMPUTER GRAPHICS ILLUSTRATOR: NAILA 09/01/191717 RPT#: [id number] DC DATE:09/01/19 STATUS: DIS IN [facility] [address] [place] [address] END OF REPORT
--- NOTE | 2019-09-02 11:56 | MORECARE ---
CASE MANAGEMENT DISCHARGE SUMMARY PATIENT: TOY WHITE UNIT: [id number] ADM DATE: 08/31/19 AGE: 53 : 69 SEX: F ROOM/BED: D.1208 AUTHOR: SIVA,DOC PHYSICIAN: REFERRING PHYSICIAN: RAMÍREZ CARABALLO DO DATE OF SERVICE: 09/02/19 Discharge Plan Patient Name: TOY WHITE Facility: [facility]:[place] : 1965 Planned Disposition: Home Health Service Anticipated Discharge Date: 09/01/19 Discharge Date: 09/01/2019 Expected LOS: 1 Initial Reviewer: [email or web address] Initial Review Date: 08/31/2019 Generated: 09/02/19 12:55 pm Comments DCP- Discharge Planning Updated by [email or web address]: Alivia Gillette on 09/01/19 3:[address] DC Plan: [facility], spouse to drive patient home. CM met with patient to discuss initial discharge planning, with present. Patient is in agreement to proceed with the assessment. Patient reports that she lives at home independently with her . Patient is alert/oriented. Stairs/steps: 1. PCP: Dr. Francis Garza. Pharmacy: [facility] Patient states she has been able to obtain all of her prescribed medications. HHS: No. DME: Walker, CPM, Compression service, Polar Ice Pack, BSC/Shower chair. Emergency contact: Raghav White [phone]. Patient is Independent with all ADL's, medication management FUSELAGE FRAMER. CM discussed the availability of HH, Rehab, SNF, OP Therapy, DME services. Patient request [facility], with Mj Aviles for PT. Patient denies hospitalization within the past 30 days. Patient denies the use of community resources FUSELAGE FRAMER. Transportation at time of discharge: Raghav. CM contacted Arely, with [facility], left a VM for Yudy Waterman @[phone], with referral. Provided required information to . DCPIA - Discharge Planning Initial Assessment Updated by [email or web address]: Alivia Gillette on 09/01/19 5:11 pm * Is the patient Alert and Oriented? Yes * How many steps to enter\exit or inside your home? * PCP Francis Carrera * Pharmacy [facility] * Preadmission Environment Home with Family * ADLs Independent * Equipment Bedside Commode Walker * Other Equipment Compression device CPM Polar Ice Pack * List name and contact numbers for known caregivers / representatives who currently or will assist patient after discharge: Raghav White () [phone] * Verbal permission to speak to the caregivers and representatives has been obtained from the patient. Yes * Community resources currently utilized Home Health * Please name any agencies selected above. [facility] Mj Aviles (PT) * Additional services required to return to the preadmission environment? Yes * Can the patient safely return to the preadmission environment? Yes * Has this patient been hospitalized within the prior 30 days at any hospital? No External Providers External Provider: [facility] Next Contact Date: Service Request Date: Service Type: Resolution: Reviewer: Comments: Last DP export: 09/01/19 4:19 p Patient Name: TOY WHITE Page 39132 at 1156 All edits/amendments must be made on the electronic document DICTATION DATE: 09/02/19 1155 LINUX SYSTEMS ADMINISTRATOR: NAILA 09/02/19 1155 RPT#: [id number] DC DATE:09/01/19 STATUS: DIS IN [facility] [address] [place] [address] END OF REPORT
== END 2019-09-01 17:08 | disposition home health service (06) | DRG 470 ==
LOC: D.SDCHOLD 08-17 10:00 → D.M3 08-31 05:30 → D.SDCHOLD 08-31 07:30 → D.M3 08-31 09:16 → D.SDCHOLD 08-31 10:00 → D.M3 09-01 17:08
PROVIDERS: Emergency Medicine; ADMIT Orthopaedic Surgery; ATTEND Orthopaedic Surgery
PROC: 0SRC0J9 Replacement of Right Knee Joint with Synthetic Substitute, Cemented, Open Approach (ICD-10-PCS; principal; 2019-08-31 07:30)
DX: M17.11 Unilateral primary osteoarthritis, right knee (principal); Z68.41 Body mass index [BMI] 40.0-44.9, adult; I10 Essential (primary) hypertension; E66.01 Morbid (severe) obesity due to excess calories; K21.0 Gastro-esophageal reflux disease with esophagitis; R33.9 Retention of urine, unspecified

== ENCOUNTER 2019-07-18 09:14 | Emergency (ER) | payer MEDICARE ==
[~2019-07-18] VITALS: Ht 165.1 cm; Wt 111.4 kg
[~2019-07-18 09:14] MED LIST changes: -HYDROXYCHLOROQ200 MG PO; +PLAQUENIL200 MG PO
[2019-07-18 09:20] VITALS: Ht 165.1 cm; Wt 111.4 kg
[2019-07-18 09:47] LABS: BASOPHILS 0.2 % (0-2); EOSINOPHILS 0.2 % (0-7); HEMATOCRIT 44.4 % (36.0-48.0); HEMOGLOBIN 14.5 g/dL (12-16); IMMATURE GRANULOCYTES 0.2 % (0-5); LYMPHOCYTES 34.9 % (15-50); MCH 31.2 pg (26.0-34.0); MCHC 32.7 g/dL (31.0-37.0); MCV 95.5 fL (80.0-100.0); MEAN PLATELET VOLUME 10.5 fL (7.4-10.4); MONOCYTES 9.9 % (2-11); NEUTROPHILS 54.6 % (40-80); PLATELET COUNT 240 10x3/uL (130-400); RBC 4.65 10x6/uL (4.00-5.40); WBC 4.4 10x3/uL (4.8-10.8)
[2019-07-18 10:06] LABS: ANION GAP 11.2 mmol/L (8-16); CALCIUM 9.3 mg/dL (8.5-10.1); CARBON DIOXIDE 31.5 mmol/L (21.0-32.0); CREATININE - SERUM 0.9 mg/dL (0.6-1.3); POTASSIUM - SERUM 3.7 mmol/L (3.5-5.1)
[2019-07-18 10:12] LABS: ALBUMIN 4.1 g/dL (3.4-5.0); BILIRUBIN - TOTAL 0.71 mg/dL (0.2-1.3)
[2019-07-18 12:09] VITALS: BP 151/65
== END 2019-07-18 12:10 | disposition home or self-care (01) ==
LOC: D.ER 09:14
PROVIDERS: Emergency Medicine
DX: I95.9 Hypotension, unspecified (principal); Z87.898 Personal history of other specified conditions; I10 Essential (primary) hypertension